=== PATIENT | male | born 1960 | race Caucasian/White ===

== ENCOUNTER 2020-07-13 10:26 | Day surgery (SDC) | payer OTHER ==
[2020-07-11 16:05] VITALS: BMI 28.2
[~2020-07-13 10:26] MED LIST: ALPRAZolam 0.25 MG TAB PO PRN; ALPRAZolam 0.5 MG TAB PO PRN; ASPIRIN 325 MG TAB PO ONE; ATORVASTATIN 80 MG TAB PO ONE; NITROGLYCERIN SL TABS 0.4 MG TAB SUBLINGUAL PRN; SODIUM CHLORIDE 0.9% 1,000 ML in EMPTY BAG 1 BAG IV ONE
[2020-07-13] MEDS ORDERED: SODIUM CHLORIDE 0.9% 1,000 ML IV ONE (10:35)
[2020-07-13 11:08] LABS: Basophils # (A) 0.1 k/uL (0-0.2); Basophils % (A) 1 %; Eosinophils % (A) 0 %; HCT 49.2 % (39.0-53.0); HGB 16.4 gm/dL (13.0-17.5); Lymphocytes # (A) 1.4 k/uL (1.0-4.8); Lymphocytes % (A) 16 %; MCH 32.2 pg (25.0-35.0); MCHC 33.4 g/dL (31.0-37.0); MCV 96.5 fL (80.0-100.0); Mean Platelet Volume 8.1; Monocytes # (A) 0.5 k/uL (0-1.0); Monocytes % (A) 5 %; Neutrophils # (A) 6.8 k/uL (1.3-7.7); Neutrophils % (A) 76 %; Platelet Count 254 k/uL (150-450); RDW 13.2 % (11.5-15.5); WBC 8.9 k/uL (3.8-10.6)
[2020-07-13 11:20] LABS: Calcium 10.3 mg/dL (8.4-10.2); Potassium 4.1 mmol/L (3.5-5.1)
[2020-07-13] MEDS ORDERED: HEPARIN SODIUM 1,000 UN/ML (10ML VL) ONE (12:35)
[2020-07-13] MEDS ORDERED: LIDOCAINE 1% INJ 10MG/ML (20 ML MDV) ONE (12:35)
[2020-07-13] MEDS ORDERED: VERAPAMIL 2.5 MG/ML 2 ML AMP ONE (12:35)
[2020-07-13] MEDS ORDERED: fentaNYL (PF) 50 MCG/ML 2 ML AMP ONE (12:36)
[2020-07-13] MEDS ORDERED: fentaNYL (PF) 50 MCG/ML 2 ML AMP IV ONE (12:42)
[2020-07-13] MEDS ORDERED: LIDOCAINE 1% INJ 10MG/ML (20 ML MDV) SQ ONE (12:45)
[2020-07-13] MEDS ORDERED: VERAPAMIL SYRINGE (5 MG/10 ML) INTRAARTER ONE (12:47)
[2020-07-13] MEDS ORDERED: CLOPIDOGREL 75 MG TAB ONE (13:05)
[2020-07-13] MEDS ORDERED: CLOPIDOGREL 75 MG TAB PO ONE (13:08)
[2020-07-13] MEDS ORDERED: NITROGLYCERIN 1000MCG/10ML SYRINGE INTRACORON ONE (13:12)
[2020-07-13] MEDS ORDERED: IOPAMIDOL-370 125ML BTL INJ ONE (13:13)
[2020-07-13] MEDS ORDERED: IOPAMIDOL-370 100ML BTL INJ ONE (13:20)
[2020-07-13] MEDS ORDERED: ATROPINE SULFATE 0.1 MG/ML 10ML SYRINGE IV PRN (13:30)
[2020-07-13] MEDS ORDERED: RX INFO: IV CONTRAST WAS GIVEN 1 EACH MISC MISCELLANE PRN (13:30)
[2020-07-13] MEDS ORDERED: MAG HYDROX/AL HYDROX/SIMETH 30 ML CUP PO PRN (13:30)
[2020-07-13] MEDS ORDERED: NITROGLYCERIN SL TABS 0.4 MG TAB SUBLINGUAL PRN (13:30)
[2020-07-13] MEDS ORDERED: SODIUM CHLORIDE 0.9% 1,000 ML IV SCH (13:30)
[2020-07-13] MEDS ORDERED: ZOLPIDEM 5 MG TAB PO PRN (13:30)
[2020-07-13] MEDS ORDERED: traZODone HCL 50 MG TAB PO PRN (13:31)
[2020-07-13] MEDS ORDERED: CYCLOBENZAPRINE 10 MG TAB PO PRN (13:31)
[2020-07-13] MEDS ORDERED: LORATADINE 10 MG TAB PO STA (14:08)
--- NOTE | 2020-07-13 14:14 | CC ---
CARDIAC CATHETERIZATION REPORT Mr. Hein is a 59-year-old male with a known history of coronary artery disease, status post stenting in 2017, history of hyperlipidemia, who has been complaining of episode of chest discomfort and progressive dyspnea. He underwent a myocardial perfusion imaging that revealed evidence of inducible ischemia. In view of that, recommendation was made regarding cardiac catheterization. The procedure as well as the risks and the complications were discussed with the patient who is in full understanding and agreement. 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 Using Xylocaine anesthesia and Seldinger technique, a 6-Andorran sheath was introduced in the left radial artery. Selective right and left coronary angiography performed using 5-Andorran 4 bend right and left Maurizio catheter. Multiple views of the coronary artery including hemiaxial views were obtained. Following that, 5-Andorran tight pigtail catheter introduced in the left ventricle and left ventricular end-diastolic pressure was calculated. Following that, catheter was removed. Images were reviewed. FINDINGS: LEFT MAIN: This is a large-sized vessel, bifurcating into left circumflex, left anterior descending artery. Left main coronary artery has no evidence of high-grade stenosis. LEFT ANTERIOR DESCENDING ARTERY: This is a large-sized vessel reaching to the apex with a wraparound apex segment giving rise to 3 small diagonal branches. The left anterior descending artery ostium has a 20% to 30% plaque. The mid vessel has mild intimal disease of 10% to 20% without any evidence of high-grade stenosis. LEFT CIRCUMFLEX: This is a nondominant vessel giving rise to a large proximal obtuse marginal branch. The obtuse marginal branch proximally has a 70% to 80% stenosis. The rest of the vessel has no high-grade stenosis. RIGHT CORONARY ARTERY: This is a large dominant vessel bifurcating distally PDA posterolateral segment and branches. The stented segment in the proximal mid RCA are a patent. There is diffuse intimal disease throughout the left circumflex of 20% to 30% without any evidence of high-grade stenosis. LEFT VENTRICULOGRAM: Left ventriculogram was not performed. HEMODYNAMICS: There was no gradient across the aortic valve. The left ventricular end-diastolic pressure is 14-16 mmHg. CONCLUSION: 1. Critical stenosis in the first obtuse marginal branch. 2. Mild to moderate disease in the right coronary artery with mild disease in the left anterior descending artery. RECOMMENDATION: In view of finding anatomy, I recommend proceeding with angioplasty and stenting of the obtuse marginal branch. The procedure as well as the risks and the complications were discussed with the patient who is in full understanding and agreement. VESNA / JONATHANN: [id number] /
--- NOTE | 2020-07-13 14:22 | PTCA ---
PERCUTANEOUSTRANS CORORONARY ANGIOGRAPHY Mr. Hein is a 59-year-old male with known history of coronary artery disease who presented with symptoms of dyspnea and chest discomfort, had an abnormal myocardial perfusion imaging, underwent cardiac catheterization and had significant obstructive disease involving the first obtuse marginal branch. In view of that, recommendation was made regarding angioplasty and stenting, the procedure as well as the risks and the complications were discussed with the patient who is in full understanding and agreement. PROCEDURE: A 6-Danish FR4 guiding catheter introduced in the system. After cannulating the left main a 0.014 balanced medium weight J-wire was advanced across the lesion positioned distally then a 2.5 x 15 mm Xience Maria Del Rosario stent was advanced, deployed and post dilated at 16 atmospheres. After the last inflation, after appropriate wait, the balloon and the guidewire were withdrawn back in the guiding catheter. Images were obtained and repeated. Those images reveal stable successful stenting. At that point, the guiding catheter, the balloon and the guidewire were removed. The sheath was removed. Hemostasis was obtained with deployment of TR band. There was no immediate complication. Patient was returned to his room in stable condition. Of note, the patient received a total of 6000 units of intravenous heparin through the procedure and his ACT was followed. He also received intra-arterial verapamil. He had no chest discomfort and he received an oral loading dose of clopidogrel. RESULTS: Successful stenting of the first obtuse marginal branch with reduction of stenosis from 80% to 0%. RECOMMENDATION: Patient will be continued on aspirin, Plavix and statin. The importance of dual antiplatelet treatment were discussed with the patient who is in full understanding and agreement. Duration of procedure is 52 minutes. MMODL / IJN: [id number] /
[2020-07-13] MEDS ORDERED: hydrOXYzine pamoate 25 MG CAP PO SCH (21:00)
[2020-07-13] MEDS ORDERED: ATORVASTATIN 80 MG TAB PO SCH (21:00)
[2020-07-13] MEDS: lisinopriL 5 MG TAB PO SCH (21:10)
[2020-07-13] MEDS: ACYCLOVIR 200 MG CAP PO SCH (21:10)
[2020-07-14 05:59] LABS: African American GFR (CKD) 72 (>60 ml/min/1.73 sqM); Anion Gap 8 mmol/L; Blood Urea Nitrogen 15 mg/dL (9-20); Calcium 9.7 mg/dL (8.4-10.2); Carbon Dioxide 25 mmol/L (22-30); Chloride 108 mmol/L (98-107); Glucose 109 mg/dL (74-99); Non-African American GFR(CKD) 62 (>60 ml/min/1.73 sqM); Potassium 4.8 mmol/L (3.5-5.1); Sodium 141 mmol/L (137-145)
[2020-07-14] MEDS ORDERED: TAMSULOSIN 0.4 MG CAP.ER.24H PO SCH (09:00)
[2020-07-14] MEDS ORDERED: buPROPion XL 150 MG TAB.ER.24H PO SCH (09:00)
[2020-07-14] MEDS ORDERED: ASPIRIN 81 MG PO SCH (09:00)
[2020-07-14] MEDS ORDERED: CLOPIDOGREL 75 MG TAB PO SCH (09:00)
[2020-07-14] MEDS ORDERED: SERTRALINE 100 MG TAB PO SCH (09:00)
[2020-07-14] MEDS: lisinopriL 5 MG TAB PO SCH (09:17)
[2020-07-14] MEDS: ACYCLOVIR 200 MG CAP PO SCH (09:17)
--- NOTE | 2020-07-14 09:49 | PN ---
PROGRESS NOTE Mr. Hein is a 59-year-old male with a known history of coronary artery disease who has been having symptoms of dyspnea and chest discomfort. Had an abnormal myocardial perfusion imaging, underwent cardiac catheterization and was found to have critical stenosis in the first obtuse marginal branch. He underwent stenting of that vessel yesterday. He is doing well today. He is feeling better. He is ambulating without difficulty. Denying any chest pain. No dizziness. No palpitation. He continued on aspirin once a day, Lipitor 80 mg daily, Plavix 75 mg daily, lisinopril 5 mg twice a day, sertraline 100 mg daily, tamsulosin 0.4 mg daily. PHYSICAL EXAMINATION: VITAL SIGNS: Blood pressure 123/70 with a heart rate in 70s. LUNGS: Clear. HEART: Regular rate and rhythm, S1, S2. No S3. No rub. ABDOMEN: Soft and nontender. EXTREMITIES: No edema. Left radial pulse intact. LAB DATA: Lab data revealed a BUN and creatinine of 15 and 1.25, potassium 4.8. IMPRESSION: 1. Status post stenting of the first obtuse marginal branch. 2. History of coronary artery disease and prior stenting of the RCA. 3. Hypertension. 4. Hyperlipidemia. RECOMMENDATION: Patient will be discharged home today and followed as an outpatient. MMODL / IJN: [id number] /
[2020-07-14 12:31] VITALS: BP 104/65; PULSE 66; RESP 18; TEMP 97.6
== END 2020-07-14 11:05 | disposition home or self-care (01) ==
LOC: CATHCVL 10:26 → 6NMEDSUR 14:12 → CATHCVL 07-14 11:05
PROVIDERS: ATTEND Internal Medicine Interventional Cardiology
DX: I25.10 Atherosclerotic heart disease of native coronary artery without angina pectoris (principal); I10 Essential (primary) hypertension; E78.5 Hyperlipidemia, unspecified; Z82.49 Family history of ischemic heart disease and other diseases of the circulatory system; Z79.899 Other long term (current) drug therapy; Z79.82 Long term (current) use of aspirin; E78.2 Mixed hyperlipidemia; Z95.5 Presence of coronary angioplasty implant and graft
CPT/HCPCS: 93458; 80048 ×2; 85025; 87635; C9600; C1769; C1887; C1874; J2001; J3010; J1644; Q9967 ×2

== ENCOUNTER → 2021-02-21 | Outpatient (CLI) | payer OTHER ==
[2021-02-21 11:36] LABS: HCT 51.5 % (39.0-53.0); HGB 17.2 gm/dL (13.0-17.5); MCH 34.2 pg (25.0-35.0); MCHC 33.3 g/dL (31.0-37.0); MCV 102.5 fL (80.0-100.0); Macrocytosis Slight; Mean Platelet Volume 8.8; Platelet Count 212 k/uL (150-450); RBC 5.02 m/uL (4.30-5.90); RDW 12.3 % (11.5-15.5)
[2021-02-21 11:45] LABS: Potassium 3.8 mmol/L (3.5-5.1)
== END | disposition home or self-care (01) ==
LOC: LABPAT 11:13
PROVIDERS: ATTEND Internal Medicine Interventional Cardiology
DX: Z01.812 Encounter for preprocedural laboratory examination (principal); I25.118 Atherosclerotic heart disease of native coronary artery with other forms of angina pectoris
CPT/HCPCS: 36415; 80051; 82565; 84520; 85027

== ENCOUNTER → 2023-11-17 | Outpatient (CLI) | payer MEDICARE ==
--- NOTE | 2023-11-17 18:13 | XR ---
EXAMINATION TYPE: XR chest 2V DATE OF EXAM: 11/17/2023 5:54 PM CLINICAL INDICATION: Male, 63 years old with history of R10.13 EPIGASTRIC PAIN, R61 HYPERHIDROSIS; PH H COMPARISON: None TECHNIQUE: XR chest 2V Frontal view of the chest. FINDINGS: Lungs/Pleura: There is no evidence of pleural effusion, focal consolidation, or pneumothorax. Pulmonary vascularity: Unremarkable. Heart/mediastinum: Cardiomediastinal silhouette is unremarkable. Musculoskeletal: No acute osseous pathology. Severe degenerative changes of the left shoulder. IMPRESSION: No acute cardiopulmonary disease/process. [facility], , 11/17/2023 6:10 PM
--- NOTE | 2023-11-17 18:28 | CT ---
EXAMINATION TYPE: CT chest without contrast. CT angiogram chest with contrast. CT DLP: 736.0 mGycm, Automated exposure control for dose reduction was used. DATE OF EXAM: 11/17/2023 6:01 PM COMPARISON: Chest radiograph from same day. CLINICAL INDICATION: Male, 63 years old with history of R10.13 EPIGASTRIC PAIN; Epigastric pain x2wks . TECHNIQUE/CONTRAST: CT without chest.CTA scan of the thorax is performed with IV Contrast, patient injected with 100ml mL of Isovue 370, MIP images are created and reviewed these are created on a separate workstation.. FINDINGS: Pulmonary Artery: There is no evidence for a filling defect within the pulmonary vasculature to sugge st acute pulmonary embolism. The pulmonary artery is of normal size. Lungs/Pleura: No evidence of focal consolidation, pleural effusion or pneumothorax. Airway: Large airways are patent. Heart: Heart is within normal limits for size. Vasculature: No evidence for intramural hematoma on noncontrast imaging. No evidence of intimal flap to suggest dissection. No aneurysm identified. Scattered atherosclerotic disease. Mediastinum: No gross evidence of adenopathy. Musculoskeletal: No acute osseous abnormalities, severe degeneration changes left shoulder. Soft Tissues/lymph nodes: Unremarkable. Lower neck: No significant findings. Upper Abdomen: No significant findings. IMPRESSION: 1. No evidence of pulmonary embolism, dissection or aneurysm. 2. No evidence for acute process. Follow up recommendations for incidental pulmonary nodules, if there are any, are per [employer] [place] [employer] [employer] or [employer]. https://radiopaedia.org/articles/irvlkxyjkz-[email or web address]-[email or web address]-[email or web address]?lang=us [facility], , 11/17/2023 6:26 PM
== END | disposition home or self-care (01) ==
LOC: RADCTMAIN 16:03
PROVIDERS: ATTEND Family Medicine
DX: R10.13 Epigastric pain
CPT/HCPCS: 71046; 71275

== ENCOUNTER → 2023-11-17 | Outpatient (CLI) | payer MEDICARE ==
[2023-11-17 17:18] LABS: Basophils # (A) 0.1 k/uL (0-0.2); Basophils % (A) 1 %; Eosinophils # (A) 0.1 k/uL (0-0.7); Eosinophils % (A) 2 %; HCT 50.1 % (39.0-53.0); HGB 16.5 gm/dL (13.0-17.5); Lymphocytes # (A) 1.7 k/uL (1.0-4.8); Lymphocytes % (A) 31 %; MCH 33.1 pg (25.0-35.0); MCHC 32.8 g/dL (31.0-37.0); MCV 100.7 fL (80.0-100.0); Mean Platelet Volume 7.8; Monocytes # (A) 0.4 k/uL (0-1.0); Monocytes % (A) 8 %; Neutrophils # (A) 3.1 k/uL (1.3-7.7); Neutrophils % (A) 55 %; Platelet Count 203 k/uL (150-450); RBC 4.98 m/uL (4.30-5.90); RDW 12.3 % (11.5-15.5); WBC 5.5 k/uL (3.8-10.6)
[2023-11-17 17:29] LABS: ALT 29 U/L (4-49); AST 40 U/L (17-59); African American GFR (CKD) >90 (>60 ml/min/1.73 sqM); Albumin 4.6 g/dL (3.5-5.0); Albumin/Globulin Ratio 1.9; Alkaline Phosphatase 58 U/L (38-126); Amylase 75 U/L (30-110); Anion Gap 9 mmol/L; Blood Urea Nitrogen 14 mg/dL (9-20); Calcium 10.2 mg/dL (8.4-10.2); Carbon Dioxide 25 mmol/L (22-30); Chloride 107 mmol/L (98-107); Globulin 2.4 g/dL; Glucose 85 mg/dL (74-99); Lipase 147 U/L (23-300); Non-African American GFR(CKD) 87 (>60 ml/min/1.73 sqM); Potassium 4.5 mmol/L (3.5-5.1); Sodium 141 mmol/L (137-145); Total Bilirubin 1.3 mg/dL (0.2-1.3)
== END | disposition home or self-care (01) ==
LOC: LABWHC1 16:19
PROVIDERS: ATTEND Family Medicine
DX: R61 Generalized hyperhidrosis (principal); R10.13 Epigastric pain; R19.7 Diarrhea, unspecified
CPT/HCPCS: 36415; 80053; 82150; 82550; 82552; 83690; 84484; 85025

== ENCOUNTER → 2024-04-20 | Day surgery (SDC) | payer MEDICARE ==
[2024-04-15 12:35] VITALS: BMI 25.0
[~2024-04-20] MED LIST changes: -ASPIRIN 325 MG TAB PO ONE; +ASPIRIN 81 MG PO SCH; -ATORVASTATIN 80 MG TAB PO ONE; +ATORVASTATIN 80 MG TAB PO SCH; +ATORVASTATIN 80 MG TAB PO STA; +ATROPINE SULFATE 0.1 MG/ML 10ML SYRINGE IV PRN; +CLOPIDOGREL 75 MG TAB PO SCH; +HEPARIN SODIUM,PORCINE (1 ML) 2,500 UNIT in SODIUM CHLORIDE 0.9% 250 ML IRRIGATION PRN; +HEPARIN SODIUM,PORCINE 10,000 UNIT in SODIUM CHLORIDE 0.9% 1,000 ML IRRIGATION PRN; +MAG HYDROX/AL HYDROX/SIMETH 30 ML CUP PO PRN; +METOPROLOL TARTRATE 25 MG TAB PO SCH; +RX INFO: IV CONTRAST WAS GIVEN 1 EACH MISC MISCELLANE PRN; +SERTRALINE 50 MG TAB PO SCH; -SODIUM CHLORIDE 0.9% 1,000 ML in EMPTY BAG 1 BAG IV ONE; +SODIUM CHLORIDE 0.9% 1,000 ML in EMPTY BAG 1 BAG IV SCH; +ZOLPIDEM 5 MG TAB PO PRN; +lisinopriL 10 MG TAB PO SCH; +traZODone HCL 50 MG TAB PO SCH
[2024-04-20 09:06] VITALS: TEMP 98.9
[2024-04-20] MEDS: ASPIRIN 325 MG TAB PO STA (09:07)
[2024-04-20] MEDS: SODIUM CHLORIDE 0.9% 1,000 ML in EMPTY BAG 1 BAG IV SCH (09:08)
[2024-04-20] MEDS: IV FLUID CONTINUATION 1,000 ML IV ONE ×2 (09:10→15:30)
[2024-04-20 09:30] LABS: Basophils % (A) 0 %; Eosinophils # (A) 0.1 k/uL (0-0.7); Eosinophils % (A) 1 %; HGB 15.3 gm/dL (13.0-17.5); Lymphocytes % (A) 11 %; MCH 33.1 pg (25.0-35.0); MCV 103.5 fL (80.0-100.0); Macrocytosis Slight; Mean Platelet Volume 8.4; Monocytes # (A) 0.5 k/uL (0-1.0); Monocytes % (A) 5 %; Neutrophils # (A) 7.6 k/uL (1.3-7.7); Neutrophils % (A) 81 %; Platelet Count 222 k/uL (150-450); RBC 4.64 m/uL (4.30-5.90); RDW 12.9 % (11.5-15.5); WBC 9.3 k/uL (3.8-10.6)
[2024-04-20 09:32] LABS: African American GFR (CKD) >90 (>60 ml/min/1.73 sqM); Anion Gap 6 mmol/L; Blood Urea Nitrogen 15 mg/dL (9-20); Calcium 9.6 mg/dL (8.4-10.2); Carbon Dioxide 27 mmol/L (22-30); Chloride 103 mmol/L (98-107); Glucose 113 mg/dL (74-99); Non-African American GFR(CKD) 81 (>60 ml/min/1.73 sqM); Sodium 136 mmol/L (137-145)
[2024-04-20 09:36] LABS: Potassium 4.7 mmol/L (3.5-5.1)
[2024-04-20] MEDS: fentaNYL (PF) 50 MCG/ML 2 ML AMP IVP ONE (10:59)
[2024-04-20] MEDS: LIDOCAINE 1% INJ 10MG/ML (20 ML MDV) SQ ONE (11:00)
[2024-04-20] MEDS: VERAPAMIL SYRINGE (5 MG/10 ML) INTRAARTER ONE (11:02)
[2024-04-20] MEDS: HEPARIN SODIUM 1,000 UN/ML (10ML VL) IVP ONE ×2 (11:10→11:39)
[2024-04-20] MEDS: CLOPIDOGREL 75 MG TAB PO ONE (11:23)
[2024-04-20] MEDS: NITROGLYCERIN 1000MCG/10ML SYRINGE INTRACORON ONE (11:30)
[2024-04-20] MEDS: IOPAMIDOL-370 100ML BTL INJ ONE (11:52)
--- NOTE | 2024-04-20 12:10 | P.CARDCATH ---
Date of Procedure: 04/20/24 Description of Procedure: Cardiac Catheterization: The patient is a 63-year-old male with a known history of CAD, status post multivessel stenting, history of hypertension and hyperlipidemia who had an abnormal MPI and is scheduled to undergo shoulder surgery. I discussed with him that if stenting is needed his surgery will need to be postponed. Recommendations were made regarding cardiac catheterization, the risks and the complications were discussed with the patient who is in full understanding and agreement. 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 Using Xylocaine Anesthesia and modified Seldinger technique, a 6-[place]i sheath was introduced in the left radial artery . Subsequently, selective coronary angiography was performed using a 5-[place]i 4 bend Maurizio catheter. Multiple views of the coronary artery including hemiaxial views were obtained. The right Maurizio catheter was used to cross the aortic valve and LVEDP was calculated. PCI: After removing the catheters a 6 [place]i CLS 3.5 guiding catheter was introduced into the system and after cannulating the left main a 0.014 [place] J-wire was advanced and positioned in the distal OM, subsequently a 2.5 x 15 mm Xience stan point stent was advanced and deployed at 16 kenzie. After removing the balloon a [place] Sullivan eye IVUS catheter was introduced and images were obtained that revealed mild under deployment of the stent. At that point a 3.0 x 15 mm NC trek balloon was advanced and 1 inflation at 12 kenzie was done. Subsequently the wire was removed images were obtained and revealed stable successful stenting. Following that, catheter and sheath were removed. Hemostasis was obtained with deployment of vascular band . There was no immediate complication. Patient was returned to room in stable condition. Of note, the patient received a total of 6000 units of intravenous heparin as well as intra-arterial verapamil. His ACT was followed. He received an oral loading dose of clopidogrel. He had mild chest discomfort that resolved at the end of the procedure, he had no EKG changes. Findings: Fluoroscopy: Calcifications of the coronary arteries was noted. Left main: This is a large size vessel, bifurcating into LAD and left circumflex, distal left main has 10 to 20% plaque with no high-grade stenosis LAD: This is a large size vessel, reaching to the apex, giving rise to 2 small to moderately sized diagonal branch. The LAD proximally has a 20 to 30% plaque, the rest of the vessel has no high-grade stenosis Left circumflex: This is a large nondominant vessel giving rise to 2 obtuse marginal branch the first 1 is larger in caliber. The proximal left circumflex prior to the bifurcation of the first OM has a 30% plaque the stented segment in the proximal OM is patent distal to the stent there is a 95% stenosis, the rest of the vessel has no high-grade stenosis RCA: This is a large dominant vessel, bifurcating into PDA and PLV. The proximal RCA has a 30 to 40% plaque the stented segment in the proximal and mid RCA are patent with mild in-stent restenosis of 2 2030%. The distal segment of the RCA prior to the bifurcation of the PDA and PLV is diffusely disease with a area of stenosis up to 30 to 40% Left subclavian there is mild to moderate obstructive disease in the left subclavian with no significant gradient Left Ventriculogram: Not performed Hemodynamics: There was no gradient across aortic valve, LVEDP was 12-16 mmHg Conclusion: 1. Calcified coronary arteries 2. Severe stenosis in the first obtuse marginal branch distal to the prior stent 3. Mild to moderate disease in the LAD and the RCA 4. Patent stent in the RCA 5. Successful stenting of the OM1 with reduction of stenosis from 95% to less than 5% with IVUS imaging and BHAVYA-3 flow Recommendations: The patient will continue on aspirin and clopidogrel for 6 months without any interruption with aggressive coronary risks modifications, maintaining LDL below 70 mg/dL. He will be reevaluated regarding the timing of his shoulder surgery.. The findings and the recommendations were discussed with the patient and the family and they were in full understanding and agreement. Duration of sedation: 41 minutes.
[2024-04-20 19:02] VITALS: BP 147/84; PULSE 82; RESP 16
== END | disposition home or self-care (01) ==
LOC: CATHCVL 08:42
PROVIDERS: ATTEND Internal Medicine Interventional Cardiology
DX: I25.10 Atherosclerotic heart disease of native coronary artery without angina pectoris (principal); Z95.5 Presence of coronary angioplasty implant and graft; I10 Essential (primary) hypertension; E78.5 Hyperlipidemia, unspecified; Z79.82 Long term (current) use of aspirin; Z88.5 Allergy status to narcotic agent
CPT/HCPCS: 92978; 93458; 80048; 85025; C1769 ×4; C9600; C1894; C1753; C1874; C1725; C1887; J2003; J3010; J1644; Q9967; J2305